=== PATIENT | female | born 1995 | race Caucasian/White ===

== ENCOUNTER 2021-06-09 12:44 | Emergency (ER) | payer SELFPAY | END 2021-06-09 13:52 | disposition home or self-care (01) | LOC: NAV ERS 12:44 | DX: R55 Syncope and collapse (principal); S16.1XXA Strain of muscle, fascia and tendon at neck level, initial encounter; F43.0 Acute stress reaction; F17.210 Nicotine dependence, cigarettes, uncomplicated; W19.XXXA Unspecified fall, initial encounter | CPT/HCPCS: 72040; 93005 ==

== ENCOUNTER 2022-12-26 18:54 | Emergency (ER) | payer SELFPAY ==
[2022-12-26] MEDS ORDERED: predniSONE 20 MG TAB ONE (19:14)
[2022-12-26] MEDS ORDERED: Ibuprofen 800 MG TAB ONE (19:14)
[2022-12-26] MEDS ORDERED: Ipratropium/Albuterol 3 ML NEB ONE (19:14)
[2022-12-26] MEDS ORDERED: Benzonatate 100 MG CAP ONE (19:14)
== END 2022-12-26 20:20 | disposition home or self-care (01) ==
LOC: NAV ERS 18:54
DX: J20.9 Acute bronchitis, unspecified (principal); B34.9 Viral infection, unspecified; F17.210 Nicotine dependence, cigarettes, uncomplicated
CPT/HCPCS: 71046; 87081; 87430; 87804; 87807; J7512; J7620